=== PATIENT | female | born 1955 | race Caucasian/White ===

== ENCOUNTER 2021-11-30 15:02 | Inpatient (IN) | payer MEDICAID ==
[~2021-11-30] VITALS: Ht 147.3 cm; Wt 81.6 kg
--- NOTE | 2021-11-30 15:22 | NUR ---
To ER bed 6, bib daughter, on and off chest pressure since yesterday. sob x today. 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
[2021-11-30 15:48] LABS: BASOPHILS # (AUTO) 0.1 K/uL (0.0-0.2); BASOPHILS % (AUTO) 0.7 % (0.0-2.0); EOSINOPHILS % (AUTO) 2.3 % (0.0-6.0); HEMATOCRIT 35 % (33-45); HEMOGLOBIN 11.6 g/dL (11.5-14.8); LYMPHOCYTES # (AUTO) 2.7 K/uL (0.8-4.8); LYMPHOCYTES % (AUTO) 29.6 % (20.0-44.0); MEAN CORPUSCULAR HGB CONC 33 g/dl (31.0-36.0); MEAN CORPUSCULAR VOLUME 82 fL (82-100); MONOCYTES # (AUTO) 0.6 K/uL (0.1-1.30); MONOCYTES % (AUTO) 6.6 % (2.0-12.0); NEUTROPHILS # (AUTO) 5.6 K/uL (1.8-8.9); NEUTROPHILS % (AUTO) 60.8 % (43.0-81.0); PLATELET COUNT (AUTO) 346 K/uL (150-450); RED BLOOD CELL COUNT(AUTO) 4.29 MIL/uL (4.0-5.2); WHITE BLOOD COUNT (AUTO) 9.3 K/uL (4.3-11.0)
--- NOTE | 2021-11-30 15:56 | NUR ---
COVID SWAB DONE AND SENT TO LAB
[2021-11-30 16:07] LABS: CALCIUM, SERUM 9.2 mg/dL (8.5-10.1); CARBON DIOXIDE 27 mmol/L (21-32); CHLORIDE 102 mmol/L (98-107); CREATININE 0.9 mg/dL (0.6-1.3); GLUCOSE 118 mg/dL (74-106); POTASSIUM 4.3 mmol/L (3.5-5.1); SODIUM SERUM 136 mmol/L (136-145); UREA NITROGEN, BLOOD 21 mg/dL (7-18)
[2021-11-30] MEDS ORDERED: PIOG15TA8 PO (16:11)
[2021-11-30] MEDS ORDERED: ATOR40TA PO (16:11)
[2021-11-30] MEDS ORDERED: LEVO25TA7 PO (16:11)
[2021-11-30] MEDS ORDERED: METF-441 PO (16:11)
[2021-11-30] MEDS ORDERED: LISI40TA13 PO (16:11)
[2021-11-30] MEDS ORDERED: KETO5DRO72 EACHEYE (16:18)
[2021-11-30 16:19] LABS: ALANINE AMINOTRANSFERASE 31 U/L (12-78); ALBUMIN 3.6 g/dL (3.4-5.0); ALKALINE PHOSPHATASE 70 U/L (46-116); ASPARTATE AMINOTRANSFERASE 16 U/L (15-37); BILIRUBIN,DIRECT 0.1 mg/dL (0.0-0.2); BILIRUBIN,TOTAL 0.2 mg/dL (0.2-1.0); TOTAL PROTEIN, SERUM 7.1 g/dL (6.4-8.2)
[2021-11-30] MEDS ORDERED: Z GUARD REMEDY 4 OZ OINT TP PRN (19:30)
[2021-11-30] MEDS ORDERED: MAG HYDROX/AL HYDROX/SIMETH 30 ML UDC PO PRN (19:30)
[2021-11-30] MEDS ORDERED: DEXTROSE 50%-WATER 50 ML DISP.SYRIN IV PRN (19:30)
[2021-11-30] MEDS ORDERED: NITROGLYCERIN 0.4 MG/TAB BOTTLE SL PRN (19:30)
[2021-11-30] MEDS ORDERED: ONDANSETRON HCL/PF 4 MG/2 ML VIAL IVP PRN (19:30)
[2021-11-30] MEDS ORDERED: ACETAMINOPHEN 325 MG TABLET PO PRN (19:30)
[2021-11-30] MEDS ORDERED: ZOLPIDEM TARTRATE 5 MG TABLET PO PRN (19:30)
[2021-11-30] MEDS ORDERED: MAGNESIUM HYDROXIDE 30 ML UDC PO PRN (19:30)
[2021-11-30] MEDS ORDERED: MORPHINE SULFATE INJ 2 MG/ML DISP.SYRIN IV PRN (19:30)
[2021-11-30] MEDS ORDERED: HYDROCODONE/APAP 5/325MG TABLET PO PRN (19:30)
--- NOTE | 2021-11-30 19:56 | NUR ---
BELONGINGS BROUGHT BY FAMILY
--- NOTE | 2021-11-30 20:50 | NUR ---
REPORT GIVEN TO MONSERRAT AALNIS, GOING TO BED 308-2
--- NOTE | 2021-11-30 20:53 | NUR ---
PATIENT IS BEING TRANSFERRED VIA [facility] PROTOCOL OBSERVED.
[2021-11-30 21:15] VITALS: BP 129/72
[2021-11-30] MEDS: ENOXAPARIN SODIUM 40 MG/0.4 ML DISP.SYRIN SQ SCH (21:58)
[2021-11-30] MEDS: BLOOD SUGAR DIAGNOSTIC 1 EACH STRIP IN SCH (21:59)
[2021-11-30 22:00] VITALS: BP 129/72
[2021-11-30] MEDS: INSULIN REGULAR, HUMAN 100 UNIT/ML 3 ML VIAL SQ PRN (22:00)
--- NOTE | 2021-11-30 22:00 | NUR ---
dramatic coach notes Received Pt from ER nurse, John RN and Natanael RN. Pt arrived at the unit with a gurney and ACLS protocol. Pt is alert and orientedX4. Pt speaks Kiswahili and able to make needs known and Pt's daughter helped with Moroccan translation. On room air. No SOB. No S/S of distress noted. IV site at LAC# 18 is clean, intact, flushes well and SL. Tele monitor showed SR. Skin assessment is done and performed. Pt allowed to have BLE ext. checked. Pt stated "I'm okay." Reorient Pt to the room and the use of call light. Pt verbalize understanding. Received admission ordered from MD. SAfety precautions is maintained. Bed at low position, brakes locked, side rails upX2,hob elevated and call light is within reach. Will continue to monitor.
[2021-11-30] MEDS: ATORVASTATIN 40 MG TABLET PO SCH (22:11)
[2021-12-01] VITALS: BP 140/78
[2021-12-01 00:14] VITALS: BP 140/78
[2021-12-01 04:00] VITALS: BP 143/79
[2021-12-01 06:20] LABS: BASOPHILS # (AUTO) 0.1 K/uL (0.0-0.2); BASOPHILS % (AUTO) 1.1 % (0.0-2.0); EOSINOPHILS % (AUTO) 3.4 % (0.0-6.0); HEMATOCRIT 34 % (33-45); HEMOGLOBIN 11.6 g/dL (11.5-14.8); LYMPHOCYTES # (AUTO) 2.7 K/uL (0.8-4.8); MEAN CORPUSCULAR HGB CONC 34 g/dl (31.0-36.0); MEAN CORPUSCULAR VOLUME 81 fL (82-100); MONOCYTES # (AUTO) 0.6 K/uL (0.1-1.30); MONOCYTES % (AUTO) 6.8 % (2.0-12.0); NEUTROPHILS # (AUTO) 4.7 K/uL (1.8-8.9); NEUTROPHILS % (AUTO) 55.7 % (43.0-81.0); PLATELET COUNT (AUTO) 329 K/uL (150-450); RED BLOOD CELL COUNT(AUTO) 4.22 MIL/uL (4.0-5.2); WHITE BLOOD COUNT (AUTO) 8.3 K/uL (4.3-11.0)
--- NOTE | 2021-12-01 06:30 | NUR ---
RN closing notes Pt is resting in bed comfortably. Pt is alert and orienetdX4. On room air. No SOB. No S/S of distress noted. IV site at LAC# 18 is clean, intact and SL. VS is stable. Routine meds were given as ordered. Tele monitor showed SR with first degree av block hr at 62. Kept Pt clean, dry and comfortable. Safety precautions is maintained. Bed at low position, brakes locked, side rails upX2,hob elevated and call light is within reach. Will endorse to am nurse for GREGORIO.
[2021-12-01 07:56] LABS: CALCIUM, SERUM 8.9 mg/dL (8.5-10.1); CREATININE 0.8 mg/dL (0.6-1.3); MAGNESIUM 1.7 mg/dL (1.8-2.4); PHOSPHORUS 4.8 mg/dL (2.5-4.9); POTASSIUM 3.8 mmol/L (3.5-5.1)
[2021-12-01] MEDS: BLOOD SUGAR DIAGNOSTIC 1 EACH STRIP IN SCH ×4 (07:56→21:28)
[2021-12-01] MEDS: INSULIN REGULAR, HUMAN 100 UNIT/ML 3 ML VIAL SQ PRN ×4 (07:59→21:29)
[2021-12-01 08:00] VITALS: BP 116/52
--- NOTE | 2021-12-01 08:02 | NUR ---
RN OPENING NOTE RECEIVED PATIENT IN BED, AO X 4, ITALIAN SPEAKING, IN NO ACUTE DISTRESS AT THIS TIME. SATURATION AT 98% ON ROOM AIR. SKIN IS WARM TO TOUCH, KEEP CLEAN/DRY, INTACT IV AND FLUSHING WELL. SAFETY MEASURES IMPLEMENTED. PATIENT BED ALARM IS ON. HEAD OF BED ELEVATED. BED IS LOCKED, IN LOWEST POSITION AND SIDE RAILS UP. CALL LIGHT WITHIN REACH OF THE PATIENT. WILL CONTINUE TO MONITOR AND REASSESS FOR ANY CHANGES.
[2021-12-01] MEDS: METFORMIN 850 MG TABLET PO SCH ×3 (08:34→17:20)
[2021-12-01] MEDS: LEVOTHYROXINE SODIUM 25 MCG TABLET PO SCH (08:34)
[2021-12-01] MEDS: PIOGLITAZONE HCL 15 MG TABLET PO SCH (08:34)
[2021-12-01] MEDS: PANTOPRAZOLE 40 MG TABLET.DR PO SCH (08:34)
[2021-12-01] MEDS: LISINOPRIL (20MG) 20 MG TABLET PO SCH (08:35)
[2021-12-01] MEDS: ASPIRIN EC 81 MG TABLET.DR PO SCH (08:37)
[2021-12-01] MEDS ORDERED: Aspirin Ec PO (12:53)
[2021-12-01] MEDS ORDERED: IV NS 0.9% 500 ML IV SCH (13:13)
[2021-12-01 16:00] VITALS: BP 146/78
--- NOTE | 2021-12-01 16:15 | NUR ---
OBTAINED SIGN OF CONSENT FOR CTA AND LEXSCAN (IF MACHINE DOES NOT AVAILABLE DO LEXISCAN, ACCORDING MD).
--- NOTE | 2021-12-01 17:45 | NUR ---
RN CLOSING NOTE PATIENT IN BED, ABLE TO RESPONDS ALL STIMULI. NO ACUTE DISTRESS OBSERVED. 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 SKIN IS WARM TO TOUCH, KEEP CLEAN/DRY, INTACT IV SITE. KEPT REMAINS ELEVATED HOB FOR ENSURE AIRWAY AND ASPIRATION PRECAUTION, ALSO LOWER POSITION OF THE BED FOR SAFETY. CALL LIGHT WITHIN REACH, ALL NEED MET. 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
--- NOTE | 2021-12-01 19:20 | NUR ---
RN opening notes Pt is sitting in bed comfortably watching TV. Pt is alert and orientedX4. On room air. No SOB. No S/S of distress noted. IV site at LAC# 18 is clean, intact and SL. Tele monitor showed SR hr at 90. Safety precautions is maintained. Bed at low position, brakes locked, side rails upX2,hob elevated and call light is within reach. Will continue to monitor.
[2021-12-01 20:00] VITALS: BP 136/70
[2021-12-01] MEDS: METOPROLOL TARTRATE 25 MG TABLET PO SCH (20:55)
[2021-12-01] MEDS: ATORVASTATIN 40 MG TABLET PO SCH (21:02)
[2021-12-01] MEDS: ENOXAPARIN SODIUM 40 MG/0.4 ML DISP.SYRIN SQ SCH (21:12)
--- NOTE | 2021-12-01 21:30 | NUR ---
RN notes Called Radiology regarding CT angio heart. Radiology stated "Our system is done. Will be done tomorrow." Charge nurse is aware and informed. Pt is aware and informed. Will continue to monitor. Addendum: 12/02/21 at 0731 by MELVINA RIZZO RN system is down.
--- NOTE | 2021-12-01 21:39 | NUR ---
RN notes Pt's blood sugar HS 136. Pt refuses insulin coverage. Pt stated " I'm okay." Explained risks and benefits. Pt keep refusing. will continue to monitor.
[2021-12-02] VITALS: BP 155/65
[2021-12-02 04:00] VITALS: BP 157/79
[2021-12-02] MEDS: BLOOD SUGAR DIAGNOSTIC 1 EACH STRIP IN SCH ×2 (06:31→11:59)
[2021-12-02] MEDS: INSULIN REGULAR, HUMAN 100 UNIT/ML 3 ML VIAL SQ PRN ×2 (06:33→11:37)
--- NOTE | 2021-12-02 06:40 | NUR ---
RN closing notes Pt is resting in bed comfortably. Pt is alert and orientedX4. On room air. No SOB. No S/S of distress noted. IV site at LAC# 18 is clean, intact and SL. Tele monitor showed SR with PAC PVC hr at 73. Routine meds were given as ordered. Kept Pt clean, dry and comfortable. Safety precautions is maintained. Bed at low position, brakes locked, side rails upX2,hob elevated and call light is within reach. Will endorse to am nurse for GREGORIO.
--- NOTE | 2021-12-02 07:50 | NUR ---
RN OPENING NOTE RECEIVED PATIENT IN BED, AO x 4, GEORGIAN SPEAKING, IN NO ACUTE DISTRESS AT THIS TIME. SATURATION AT 96% ON ROOM AIR. SKIN IS WARM TO TOUCH, KEEP CLEAN/DRY, INTACT IV AND FLUSHING WELL. SAFETY MEASURES IMPLEMENTED. PATIENT BED ALARM IS ON. HEAD OF BED ELEVATED. BED IS LOCKED, IN LOWEST POSITION AND SIDE RAILS UP. CALL LIGHT WITHIN REACH OF THE PATIENT. WILL CONTINUE TO MONITOR AND REASSESS FOR ANY CHANGES.
[2021-12-02] MEDS: METFORMIN 850 MG TABLET PO SCH ×2 (07:58→11:59)
[2021-12-02] MEDS: LEVOTHYROXINE SODIUM 25 MCG TABLET PO SCH (07:58)
[2021-12-02] MEDS: PANTOPRAZOLE 40 MG TABLET.DR PO SCH (07:58)
[2021-12-02 08:00] VITALS: BP 146/86
[2021-12-02] MEDS: METOPROLOL TARTRATE 25 MG TABLET PO SCH (09:11)
[2021-12-02] MEDS: ASPIRIN EC 81 MG TABLET.DR PO SCH (09:11)
[2021-12-02] MEDS: PIOGLITAZONE HCL 15 MG TABLET PO SCH (09:11)
[2021-12-02] MEDS: LISINOPRIL (20MG) 20 MG TABLET PO SCH (09:11)
[2021-12-02 12:00] VITALS: BP 150/78
--- NOTE | 2021-12-02 12:16 | NUR ---
RN NOTES UNABLE TO DO LEXISCAN BECAUSE PATIENT HAD LUNCH PER JAD FROM RADIOLOGY.
--- NOTE | 2021-12-02 13:26 | NUR ---
PATIENT HAS BEEN WAITED TO BE DONE CT ANGIOGRAM SINCE YESTERDAY DUE TO MACHINE IS DOWN. SO PATIENT SIGNED AMA AND LEFT FACILITY, WHO UNDERSTANDING ABOUT RISKS AND CONSEQUENCES INVOLVED IN LEAVING AT THIS TIME. DR. SPEARS MADE AWARE, AND REMOVED IV.
--- NOTE | 2021-12-02 13:48 | NUR ---
INCIDENT REPORT DONE. ID#: [id number].
== END 2021-12-02 13:15 | disposition left against medical advice (07) | DRG 198 ==
LOC: ER 15:02 → TELE 20:33
DX: I25.110 Atherosclerotic heart disease of native coronary artery with unstable angina pectoris (principal); E03.9 Hypothyroidism, unspecified; E11.9 Type 2 diabetes mellitus without complications; E78.5 Hyperlipidemia, unspecified; I10 Essential (primary) hypertension; Z20.822 Contact with and (suspected) exposure to COVID-19; Z79.899 Other long term (current) drug therapy; Z79.84 Long term (current) use of oral hypoglycemic drugs; E66.9 Obesity, unspecified; Z68.37 Body mass index [BMI] 37.0-37.9, adult
CPT/HCPCS: 36415; 71045-TC; 80048-TC; 80076-TC; 82962-TC; 83735-TC; 83880; 84100-TC; 84484-TC; 85025-TC; 87081-TC; 93307-TC; C9803; G0378; J1650; J1815